=== PATIENT | female | born 1965 | race Two or more races ===

== ENCOUNTER 2021-11-13 10:40 | Outpatient (CLI) | payer OTHER | END 2021-11-13 10:55 | disposition home or self-care (01) | LOC: PPH VACUNA 10:40 | PROVIDERS: ATTEND Emergency Medicine Pediatric Emergency Medicine | DX: Z23 Encounter for immunization (principal) ==

== ENCOUNTER 2023-11-13 10:07 | Outpatient (CLI) | payer OTHER | END 2023-11-13 10:19 | disposition home or self-care (01) | LOC: RAD 10:07 | PROVIDERS: ATTEND Podiatrist Foot Surgery | DX: M77.32 Calcaneal spur, left foot (principal) ==

== ENCOUNTER 2025-02-17 08:01 | Outpatient (CLI) | payer OTHER | END 2025-02-17 08:11 | disposition home or self-care (01) | LOC: MRI 08:01 | PROVIDERS: ATTEND Specialist | DX: G35 Multiple sclerosis (principal) | CPT/HCPCS: 70552; 72142 ==

== ENCOUNTER 2025-05-20 15:30 | Outpatient (CLI) | payer OTHER | END 2025-05-20 15:36 | disposition home or self-care (01) | LOC: RAD 15:30 | PROVIDERS: ATTEND Psychiatry & Neurology Psychiatry | DX: S93.602A Unspecified sprain of left foot, initial encounter (principal); X58.XXXA Exposure to other specified factors, initial encounter; Y93.9 Activity, unspecified; Y92.89 Other specified places as the place of occurrence of the external cause; Y99.9 Unspecified external cause status ==

== ENCOUNTER 2025-08-18 14:17 | Outpatient (CLI) | payer OTHER | END 2025-08-18 14:24 | disposition home or self-care (01) | LOC: SONOGRAMA 14:17 | PROVIDERS: ATTEND Psychiatry & Neurology Psychiatry | DX: N20.0 Calculus of kidney (principal); N21.1 Calculus in urethra; N21.0 Calculus in bladder ==